=== PATIENT | male | born 1975 | race Two or more races ===

== ENCOUNTER 2018-04-12 10:01 | Emergency (ER) | payer OTHER ==
[2018-04-12] MEDS ORDERED: CEFTRIAXONE 1 GM PDS IM ONE (10:18)
[2018-04-12] MEDS ORDERED: KETOROLAC TROMETHAMINE 30 MG/ML SOL IM ONE (10:19)
[2018-04-12 10:20] VITALS: TEMP 98
[2018-04-12 10:35] LABS: HEMATOCRIT 45 % (39-53); HEMOGLOBIN 15.6 gm/dl (13.5-17.7); MEAN CORPUSCULAR HGB CONC 34.9 gm/dl (32.0-36.0); MEAN CORPUSCULAR VOLUME 83 fL (80-100)
[2018-04-12] MEDS ORDERED: CEFTRIAXONE 1 GM PDS 1 GM in SODIUM CHLORIDE 0.9% 50 ML 50 ML IV ONE (10:36)
[2018-04-12] MEDS ORDERED: KETOROLAC TROMETHAMINE 30 MG/ML SOL IV ONE (10:36)
[2018-04-12 10:40] LABS: CALCIUM 9.2 mg/dl (8.5-10.1); CARBON DIOXIDE 27.6 mEq/L (21-32); CREATININE 0.94 mg/dl (0.80-1.30); CRP INFLAMMATORY 10.15 mg/dl (0.00-0.33); POTASSIUM 4.1 mMol/L (3.5-5.1)
[2018-04-12] MEDS: SODIUM CHLORIDE 0.9% FLUSH 10 ML SOL IV PRN ×2 (10:53→11:12)
[2018-04-12] MEDS ORDERED: KETOROLAC TROMETHAMINE 30 MG/ML SOL ONE (10:58)
[2018-04-12] MEDS ORDERED: CEFTRIAXONE 1 GM PDS ONE (10:58)
[2018-04-12 11:16] LABS: BAND NEUTROPHILS % (MANUAL) 0 %; BASOPHILS % (MANUAL) 0 % (0-3); EOSINOPHILS % (MANUAL) 0 % (0-9); LYMPHOCYTES % (MANUAL) 12 % (10-50); MONOCYTES % (MANUAL) 6 % (0-12); NEUTROPHILS % (MANUAL) 82 % (37-80); NORMAL RBCS NORMAL RBCS
[2018-04-12 11:50] VITALS: RESP 14
[2018-04-12] MEDS ORDERED: CLINDAMYCIN HYDROCHLORIDE 150 MG CAP PO SCH (12:00)
[2018-04-12 12:52] VITALS: BP 109/85; PULSE 85; O2SAT 95
== END 2018-04-12 12:20 | disposition home or self-care (01) | DRG 153 ==
LOC: ED 10:01
DX: J02.0 Streptococcal pharyngitis (principal); J03.00 Acute streptococcal tonsillitis, unspecified
CPT/HCPCS: 70491; 80048; 85007; 85027; 87430; 96365; 96374; 99284; 99285; J0696; J1885; Q9967